=== PATIENT | female | born 1980 | race African-American/Black ===

== ENCOUNTER 2017-05-26 06:47 | Inpatient (IN) | payer BC, OTHER ==
[~2017-05-26] VITALS: Ht 154.9 cm; Wt 81.6 kg
[2017-05-26] MEDS ORDERED: LEVE1000 PO ×2 (07:03)
[2017-05-26] MEDS ORDERED: KETOROLAC TROMETHAMINE 30 MG INJ IVP ONE (07:15)
[2017-05-26] MEDS ORDERED: diphenhydrAMINE 50 MG/1 ML VIAL IV ONE (07:15)
[2017-05-26] MEDS ORDERED: FAMOTIDINE. 20 MG/2 ML VIAL IV ONE ×2 (07:15→07:34)
[2017-05-26] MEDS ORDERED: diphenhydrAMINE 50 MG/1 ML VIAL ONE (07:33)
[2017-05-26] MEDS ORDERED: KETOROLAC TROMETHAMINE 30 MG INJ ONE (07:33)
[2017-05-26] MEDS ORDERED: CEFTRIAXONE 1 G in IV DEXTROSE 5% 50 ML IV ONE (08:30)
--- NOTE | 2017-05-26 08:43 | NUR ---
Pt to CT, NAD noted at this time.
[2017-05-26] MEDS ORDERED: CEFTRIAXONE 1 G VIAL ONE (08:47)
[2017-05-26] MEDS ORDERED: MORPHINE SULFATE 4 MG/1 ML DISP.SYRIN IV ONE (09:30)
[2017-05-26] MEDS ORDERED: VANCOMYCIN IV 1,000 MG in IV DEXTROSE 5% 250 ML IV ONE (09:30)
[2017-05-26] MEDS ORDERED: ONDANSETRON 4 MG/2 ML VIAL IV ONE (09:30)
[2017-05-26] MEDS ORDERED: VANCOMYCIN IV 200 ML ONE (09:40)
[2017-05-26] MEDS ORDERED: ONDANSETRON 4 MG/2 ML VIAL ONE (09:40)
[2017-05-26] MEDS ORDERED: MORPHINE SULFATE 10 MG/1 ML DISP.SYRIN ONE (09:41)
[2017-05-26 09:49] LABS: CREATININE 0.7 mg/dL (0.6-1.3); POTASSIUM 3.6 mmol/L (3.5-5.1)
[2017-05-26 09:51] LABS: BASOPHILS # (AUTO) 0.1 K/uL (0.0-8.0); BASOPHILS % (AUTO) 2.3 % (0.0-2.0); EOSINOPHILS # (AUTO) 0.1 K/uL (0.0-0.7); EOSINOPHILS % (AUTO) 2.3 % (0.0-7.0); HEMATOCRIT 35.9 % (37-47); HEMOGLOBIN 12.1 G/DL (12.0-16.0); LYMPHOCYTES % (AUTO) 37.1 % (20.5-51.5); MEAN CORPUSCULAR HEMOGLOBIN 29.3 UUG (27.0-31.0); MEAN CORPUSCULAR HGB CONC 34 g/dL (32.0-37.0); MEAN CORPUSCULAR VOLUME 87.2 FL (81.0-99.0); MONOCYTES # (AUTO) 0.5 K/UL (0.1-1.30); MONOCYTES % (AUTO) 8.4 % (0.0-11.0); NEUTROPHILS # (AUTO) 2.7 K/UL (1.8-8.9); NEUTROPHILS % (AUTO) 49.9 % (38.5-71.5); PLATELET COUNT (AUTO) 239 K/UL (150-450); RED BLOOD CELL COUNT(AUTO) 4.11 MIL/UL (4.2-5.4); WHITE BLOOD COUNT (AUTO) 5.4 K/UL (4.0-11.2)
[2017-05-26 09:55] LABS: BILIRUBIN,TOTAL 0.1 mg/dL (0.2-1.0); TOTAL PROTEIN, SERUM 6.6 g/dL (6.4-8.2)
[2017-05-26] MEDS ORDERED: MORPHINE SULFATE 2 MG/1 ML DISP.SYRIN IV PRN (10:30)
[2017-05-26] MEDS ORDERED: hydrALAZINE HCL 25 MG TABLET PO PRN (10:30)
[2017-05-26] MEDS ORDERED: ACETAMINOPHEN 325 MG TABLET PO PRN (10:30)
[2017-05-26 10:47] VITALS: BP 132/83
--- NOTE | 2017-05-26 11:05 | NUR ---
Received client via wheelchair from the ER. Diagnosis of right eye cellulitis. V/S stable. No apparent signs and symptoms SOB. Client states right eye discomfort and pain rating 10/10 on pain scale. Dilaudid 0.5mg given
--- NOTE | 2017-05-26 11:41 | NUR ---
CLINICAL PHARMACY NOTE: VANCOMYCIN PHARMACY TO DOSE Subjective: To start vancomycin in this 36 y/o female for indication of cellulitis Objective: weight 81kg height 155cm BMI 34 BUN 10 Scr 0.7 Wbc 5.4 temp 98.4 1gm in ER 05/26 @ ~10am Assessment/Plan As renal function appears stable, will start regimen of 1000gm q11hr for estimated trough of 16. Second dose due tonight at 2100. Will order trough before 4th scheduled dose (not ordered yet). Will follow renal function and dose per level if were to appear unstable. Will monitor
[2017-05-26] MEDS ORDERED: HYDROMORPHONE 2 MG/1 ML DISP.SYRIN IV PRN (12:00)
[2017-05-26] MEDS: NICOTINE 21 MG/24HR PATCH TD SCH (14:25)
[2017-05-26] MEDS: HYDROMORPHONE 2 MG/1 ML DISP.SYRIN IV PRN ×3 (15:22→22:49)
[2017-05-26 15:26] VITALS: BP 110/48
[2017-05-26] MEDS: ONDANSETRON 4 MG/2 ML VIAL IV PRN (15:38)
[2017-05-26 17:41] LABS: *BILIRUBIN,URIN NEGATIVE (NEGATIVE); *BLOOD, URINE NEGATIVE (NEGATIVE); *CLARITY,URINE SLIGHTLY CLOUDY (CLEAR); *COLOR,URINE DARK YELLOW (YELLOW); *KETONES,URINE NEGATIVE (NEGATIVE); *PROTEIN,URINE 1+ (NEGATIVE); *UROBILINOGEN,URINE 0.2 E.U./dl (NORMAL); LEUKOCYTE ESTERASE ,URINE NEGATIVE (NEGATIVE); NITRITE, URINE NEGATIVE (NEGATIVE); UGLUCOSE NEGATIVE (NEGATIVE)
[2017-05-26] MEDS: KETOROLAC TROMETHAMINE 15 MG INJ IVP PRN (18:06)
--- NOTE | 2017-05-26 19:22 | NUR ---
Pt in room alert and awake in no distress. No increased swelling to affected right eye. Pt requesting pain medication for comfort measures. Pt to continue IV abx therapy. Call light placed within reach. Continue to monitor.
--- NOTE | 2017-05-26 19:24 | NUR ---
RESIDENT PAIN IS STILL NOT CONTROL. PLASTIC TILE SETTER IS AWARE ABOUT CLIENTS PAIN. CLIENT AWAKE, ALERT AND ORIENTED TIMES 4
[2017-05-26 19:45] VITALS: BP 133/83
[2017-05-26 19:52] LABS: BACTERIA,URINE MODERATE /HPF (NONE SEEN); MUCUS,URINE MANY /LPF (0-FEW); RBC,URINE 0-3 /HPF (0-3); SQUAMOUS EPITHELIAL CELL,UR MANY /HPF (NONE SEEN); WBC,URINE 0-3 /HPF (0-3)
[2017-05-26] MEDS: VANCOMYCIN IV 1 G in PREMIXED 0 EACH IV SCH (20:03)
[2017-05-26] MEDS: LEVETIRACETAM 500 MG TABLET PO SCH (20:03)
[2017-05-27] MEDS: KETOROLAC TROMETHAMINE 15 MG INJ IVP PRN (00:19)
--- NOTE | 2017-05-27 01:00 | NUR ---
Pt continues to receive PRN pain medications d/t right eye. Pt still able to see left eye without difficulty. No reaction to current ABX IV therapy. Continue to monitor. Call light within reach.
[2017-05-27] MEDS: HYDROMORPHONE 2 MG/1 ML DISP.SYRIN IV PRN ×7 (01:59→21:26)
--- NOTE | 2017-05-27 05:00 | NUR ---
Pt in room asleep and slert. States her pain is still the same and Dilaudid medication has had a less effect. No s/s of reaction to Vancomycin IV abx therapy. No increased swelling or to right eye. Continue to monitor.
[2017-05-27 06:25] VITALS: BP 130/78
[2017-05-27 06:56] LABS: BASOPHILS % (AUTO) 0.2 % (0.0-2.0); EOSINOPHILS # (AUTO) 0.1 K/uL (0.0-0.7); EOSINOPHILS % (AUTO) 2.4 % (0.0-7.0); HEMATOCRIT 35.8 % (37-47); HEMOGLOBIN 11.9 G/DL (12.0-16.0); LYMPHOCYTES # (AUTO) 2.3 K/UL (0.8-4.8); LYMPHOCYTES % (AUTO) 47.7 % (20.5-51.5); MEAN CORPUSCULAR HEMOGLOBIN 29.2 UUG (27.0-31.0); MEAN CORPUSCULAR HGB CONC 33 g/dL (32.0-37.0); MEAN CORPUSCULAR VOLUME 88.1 FL (81.0-99.0); MONOCYTES # (AUTO) 0.4 K/UL (0.1-1.30); MONOCYTES % (AUTO) 9.1 % (0.0-11.0); NEUTROPHILS # (AUTO) 1.9 K/UL (1.8-8.9); NEUTROPHILS % (AUTO) 40.6 % (38.5-71.5); PLATELET COUNT (AUTO) 223 K/UL (150-450); RED BLOOD CELL COUNT(AUTO) 4.06 MIL/UL (4.2-5.4); WHITE BLOOD COUNT (AUTO) 4.7 K/UL (4.0-11.2)
[2017-05-27 07:22] LABS: THYROID STIMULATING HORMONE 2.971 mIU/mL (0.358-3.740)
[2017-05-27 07:32] LABS: BILIRUBIN,TOTAL 0.1 mg/dL (0.2-1.0); CREATININE 0.8 mg/dL (0.6-1.3); MAGNESIUM 1.7 mg/dL (1.8-2.4); PHOSPHOROUS 4.1 mg/dL (2.5-4.9); POTASSIUM 3.5 mmol/L (3.5-5.1); TOTAL PROTEIN, SERUM 6.3 g/dL (6.4-8.2)
[2017-05-27] MEDS: NICOTINE 21 MG/24HR PATCH TD SCH (08:07)
[2017-05-27] MEDS: FAMOTIDINE 20 MG TABLET PO SCH (08:07)
[2017-05-27] MEDS: LEVETIRACETAM 500 MG TABLET PO SCH ×2 (08:07→21:21)
[2017-05-27] MEDS: VANCOMYCIN IV 1 G in PREMIXED 0 EACH IV SCH ×2 (09:14→20:18)
[2017-05-27] MEDS ORDERED: MAGNESIUM SULFATE/D5W 100 ML IV SCH (10:15)
[2017-05-27 11:04] LABS: BAND % (MANUAL) 3 % (0-10); EOSINOPHILS % (MANUAL) 1 % (0-8); LYMPHOCYTES % (MANUAL) 43 % (20-40); MONOCYTES % (MANUAL) 7 % (2-10); NEUTROPHILS % (MANUAL) 46 % (42-75)
[2017-05-27 11:27] VITALS: BP 147/83
[2017-05-27] MEDS: CEFTRIAXONE 1 G in IV DEXTROSE 5% 50 ML IV SCH (11:30)
[2017-05-27] MEDS: ONDANSETRON 4 MG/2 ML VIAL IV PRN ×2 (12:45→17:58)
--- NOTE | 2017-05-27 15:08 | NUR ---
CLINICAL PHARMACY NOTE: VANCOMYCIN PHARMACY TO DOSE Subjective: To continue vancomycin in this 36 y/o female for indication of cellulitis Objective: weight 81kg height 155cm BMI 34 BUN 13 Scr 0.8 Wbc 4.7 temp 98.2 Assessment/Plan As renal function appears stable, will continue regimen of 1000gm q11hr for estimated trough of 16. Third dose was given today at 0914.. Will order trough before 4th scheduled dose (ordered for tonight at 1830). Will notify nurse to hold the dose for level over 20. Will follow renal function and dose per level if were to appear unstable. Will monitor daily.
[2017-05-27 15:34] VITALS: BP 142/92
--- NOTE | 2017-05-27 18:28 | NUR ---
Pt is in pain 10/10, pt given Diluaded and it is effective. Pt c/o Nausea with the Dilaudid, pt given Zofran, it is effective. Awake in bed with no signs of respiratory distress, AOx4, calm, cooperative, call light within reach.
--- NOTE | 2017-05-27 19:40 | NUR ---
RECEIVED PATIENT IN BED ALERT ORIENTED, NO SOB NO CHEST PAIN NOTED, CONT ON PAIN MANAGEMENT ON R EYE CELLULITIS, CALL LIGHT WITHIN REACH.
[2017-05-27] MEDS: LACTOBACILLUS RHAMNOSUS GG 1 EACH CAPSULE PO SCH (20:18)
[2017-05-27 20:27] VITALS: BP 146/88
[2017-05-27] MEDS ORDERED: LEVETIRACETAM 250 MG TABLET ONE (21:16)
[2017-05-28] MEDS: ONDANSETRON 4 MG/2 ML VIAL IV PRN ×4 (00:13→17:54)
[2017-05-28] MEDS: HYDROMORPHONE 2 MG/1 ML DISP.SYRIN IV PRN ×8 (00:33→22:00)
[2017-05-28] MEDS: VANCOMYCIN IV 1 G in PREMIXED 0 EACH IV SCH ×3 (05:33→23:15)
[2017-05-28 05:57] VITALS: BP 121/54
[2017-05-28 07:11] LABS: EOSINOPHILS # (AUTO) 0.1 K/uL (0.0-0.7); EOSINOPHILS % (AUTO) 1.8 % (0.0-7.0); HEMATOCRIT 35.9 % (37-47); HEMOGLOBIN 11.8 G/DL (12.0-16.0); LYMPHOCYTES # (AUTO) 1.8 K/UL (0.8-4.8); LYMPHOCYTES % (AUTO) 41.2 % (20.5-51.5); MEAN CORPUSCULAR HEMOGLOBIN 28.7 UUG (27.0-31.0); MEAN CORPUSCULAR HGB CONC 33 g/dL (32.0-37.0); MEAN CORPUSCULAR VOLUME 87.3 FL (81.0-99.0); MONOCYTES # (AUTO) 0.4 K/UL (0.1-1.30); MONOCYTES % (AUTO) 8.1 % (0.0-11.0); NEUTROPHILS # (AUTO) 2.2 K/UL (1.8-8.9); NEUTROPHILS % (AUTO) 47.9 % (38.5-71.5); PLATELET COUNT (AUTO) 235 K/UL (150-450); RED BLOOD CELL COUNT(AUTO) 4.11 MIL/UL (4.2-5.4); WHITE BLOOD COUNT (AUTO) 4.5 K/UL (4.0-11.2)
[2017-05-28 07:35] LABS: BILIRUBIN,TOTAL 0.2 mg/dL (0.2-1.0); CREATININE 0.8 mg/dL (0.6-1.3); PHOSPHOROUS 3.5 mg/dL (2.5-4.9); POTASSIUM 3.5 mmol/L (3.5-5.1); TOTAL PROTEIN, SERUM 6.5 g/dL (6.4-8.2)
[2017-05-28] MEDS: FAMOTIDINE 20 MG TABLET PO SCH (08:24)
[2017-05-28] MEDS: LACTOBACILLUS RHAMNOSUS GG 1 EACH CAPSULE PO SCH ×2 (08:24→20:50)
[2017-05-28] MEDS: LEVETIRACETAM 500 MG TABLET PO SCH ×2 (08:25→20:50)
[2017-05-28] MEDS: CEFTRIAXONE 1 G in IV DEXTROSE 5% 50 ML IV SCH (08:25)
[2017-05-28] MEDS: NICOTINE 21 MG/24HR PATCH TD SCH (08:25)
[2017-05-28 11:54] VITALS: BP 130/74
--- NOTE | 2017-05-28 15:21 | NUR ---
CLINICAL PHARMACY NOTE: VANCOMYCIN PHARMACY TO DOSE Subjective: To continue vancomycin in this 36 y/o female for indication of cellulitis Objective: weight 81kg height 155cm BMI 34 BUN 7 Scr 0.8 Wbc 4.5 temp 98.1 Trough: 12.7 04/26 @ 1830 Assessment/Plan Based on trough last night, will change 1000gm q11hr to 1gm q9hr for estimated trough of 16.6. 2nd dose today at 1500. Ordered trough due tomorrow at 0830. Will check trough and adjust as needed. Will follow
[2017-05-28 15:35] VITALS: BP 132/84
--- NOTE | 2017-05-28 19:45 | NUR ---
PT RECEIVED IN BED, AWAKE. A/OX4. ABLE TO MAKE NEEDS KNOWN. V/S STABLE. IN NO ACUTE DISTRESS. PT C/O EYE PAIN 04/11. WILL ADMIN PAIN MEDICATION ORDERED. IV INTACT AND PATENT. ON RA TOLERATING WELL. SEIZURE PRECAUTIONS IN PLACE. SAFETY MEASURES IMPLEMENTED. CALL LIGHT WITHIN REACH.
[2017-05-28 20:16] VITALS: BP 135/68
[2017-05-28] MEDS: ATORVASTATIN 20 MG TABLET PO SCH (20:50)
[2017-05-29] MEDS: ONDANSETRON 4 MG/2 ML VIAL IV PRN ×3 (00:59→13:04)
[2017-05-29] MEDS: HYDROMORPHONE 2 MG/1 ML DISP.SYRIN IV PRN ×6 (01:00→21:50)
[2017-05-29 05:06] VITALS: BP 132/58
--- NOTE | 2017-05-29 06:35 | NUR ---
END OF SHIFT NOTES. PT SLEPT INTERMITTENTLY THROUGHOUT SHIFT. IN STABLE CONDITION. IV TKO 3CC/HR. PAIN MANAGED THROUGHOUT SHIFT. ALL NEEDS ATTENDED. SAFETY MAINTAINED. CALL LIGHT WITHIN REACH.
--- NOTE | 2017-05-29 07:30 | NUR ---
RECEIVED PATIENT IN BED ALERT ORIENTED, NO SOB NO CHEST PAIN NOTED, CONT ON PAIN MANAGEMENT ON R EYE CELLULITIS, CALL LIGHT WITHIN REACH.
[2017-05-29] MEDS: NICOTINE 21 MG/24HR PATCH TD SCH (08:02)
[2017-05-29] MEDS: LEVETIRACETAM 500 MG TABLET PO SCH ×2 (08:02→21:06)
[2017-05-29] MEDS: FAMOTIDINE 20 MG TABLET PO SCH (08:03)
[2017-05-29] MEDS: LACTOBACILLUS RHAMNOSUS GG 1 EACH CAPSULE PO SCH ×2 (08:47→21:05)
[2017-05-29] MEDS: VANCOMYCIN IV 1 G in PREMIXED 0 EACH IV SCH ×2 (10:03→20:58)
[2017-05-29 11:20] VITALS: BP 141/68
[2017-05-29 15:05] VITALS: BP 131/74
--- NOTE | 2017-05-29 16:00 | NUR ---
CLINICAL PHARMACY NOTE: VANCOMYCIN PHARMACY TO DOSE Subjective: To continue vancomycin in this 36 y/o female for indication of cellulitis Objective: weight 81kg height 155cm BMI 34 BUN 7(05/28) Scr 0.8(05/28) Wbc 4.5(05/28) temp 98.4 Trough today at 0830 was 19.9 Assessment/Plan Based on trough today, will change 1000gm q9hr to 1gm q10hr for estimated trough of 16.7, 2nd dose today at 1000. Ordered trough due tomorrow at 0530. Will check trough and adjust as needed. Will follow
--- NOTE | 2017-05-29 17:57 | NUR ---
PT IS SEEN BY DR LA
--- NOTE | 2017-05-29 19:30 | NUR ---
Pt in room alert awake in no acute distress. No increased swelling noted to right eye. Pt c/o pain to side and will be given PRN pain medication. Pt also requesting Zofran when needed. Continues to received IV ABX therapy. Continue to monitor at this time.
[2017-05-29 20:00] VITALS: BP 142/59
[2017-05-29] MEDS: ATORVASTATIN 20 MG TABLET PO SCH (21:05)
--- NOTE | 2017-05-30 01:00 | NUR ---
Pt alert awake in room and stated she wanted to go outside for "fresh air". No s/s of reaction r/t to IV Vancomycin therapy. No increased s/s of infection noted to right eye. Continue to monitor. Pt stated she would like her pain medication after 0100 soon.
[2017-05-30] MEDS: HYDROMORPHONE 2 MG/1 ML DISP.SYRIN IV PRN ×5 (01:29→23:52)
[2017-05-30] MEDS: ONDANSETRON 4 MG/2 ML VIAL IV PRN ×2 (01:35→13:04)
[2017-05-30 04:00] VITALS: BP 169/85
--- NOTE | 2017-05-30 04:45 | NUR ---
New orders per Dr. Arellano to transfer pt to Telemetry. Also to include Lorazepam 1mg IVP Q15min PRN seizures. Noted and carried out.
[2017-05-30] MEDS: LORAZEPAM 2 MG/1 ML VIAL IV PRN (04:57)
--- NOTE | 2017-05-30 05:00 | NUR ---
Pt in room alert awake in no further episodes of seizures. Pt Received Lorazepam 1mg per MD. Continue to monitor.
[2017-05-30] MEDS ORDERED: LORAZEPAM 2 MG/1 ML VIAL ONE (05:11)
[2017-05-30] MEDS: VANCOMYCIN IV 1 G in PREMIXED 0 EACH IV SCH ×2 (06:00→08:55)
--- NOTE | 2017-05-30 08:40 | NUR ---
medicated for right eye pain Addendum: 05/30/17 at 0950 by THOMAS BOYCE RN Amended: Elias added. Addendum: 05/30/17 at 0953 by THOMAS BOYCE RN Amended: Elias lopez.
[2017-05-30] MEDS: LACTOBACILLUS RHAMNOSUS GG 1 EACH CAPSULE PO SCH ×2 (08:44→20:58)
[2017-05-30] MEDS: FAMOTIDINE 20 MG TABLET PO SCH (08:44)
[2017-05-30] MEDS: LEVETIRACETAM 500 MG TABLET PO SCH ×2 (08:44→20:58)
[2017-05-30] MEDS: NICOTINE 21 MG/24HR PATCH TD SCH (08:45)
--- NOTE | 2017-05-30 08:55 | NUR ---
per pharmacy vancomycin needed to be hung based from last vanco level. Vancomycin infused at 0855 Addendum: 05/30/17 at 0953 by THOMAS BOYCE RN Amended: Links added.
[2017-05-30 10:11] VITALS: BP 102/58
--- NOTE | 2017-05-30 13:55 | NUR ---
CLINICAL PHARMACY NOTE: VANCOMYCIN PHARMACY TO DOSE Subjective: To continue vancomycin in this 36 y/o female for indication of cellulitis Objective: weight 81kg height 155cm BMI 34 BUN 7(05/28) Scr 0.8(05/28) Wbc 4.5(05/28) temp 97.8 Vanco trough level: 11.8 Assessment/Plan Based on trough today, will change 1000gm q10hr to 1250mg IV q11hr for estimated trough of 15.8 mcg/ml. 1st dose is due today at 1100. Plan to draw vanco trough level before 4th dose (level not yet ordered). Will monitor renal function & adjust the dose if needed. Will follow
[2017-05-30 15:46] VITALS: BP 125/78
[2017-05-30] MEDS ORDERED: MAGNESIUM HYDROXIDE 30 ML LIQUID UDC PO ONE (16:30)
[2017-05-30 16:35] LABS: BASOPHILS # (AUTO) 0.1 K/uL (0.0-8.0); BASOPHILS % (AUTO) 2.8 % (0.0-2.0); EOSINOPHILS % (AUTO) 0.8 % (0.0-7.0); HEMOGLOBIN 12.8 G/DL (12.0-16.0); LYMPHOCYTES # (AUTO) 1.5 K/UL (0.8-4.8); LYMPHOCYTES % (AUTO) 27.6 % (20.5-51.5); MEAN CORPUSCULAR HEMOGLOBIN 28.4 UUG (27.0-31.0); MEAN CORPUSCULAR HGB CONC 33 g/dL (32.0-37.0); MEAN CORPUSCULAR VOLUME 86.9 FL (81.0-99.0); MONOCYTES # (AUTO) 0.6 K/UL (0.1-1.30); MONOCYTES % (AUTO) 11.6 % (0.0-11.0); NEUTROPHILS # (AUTO) 3.1 K/UL (1.8-8.9); NEUTROPHILS % (AUTO) 57.2 % (38.5-71.5); PLATELET COUNT (AUTO) 222 K/UL (150-450); RED BLOOD CELL COUNT(AUTO) 4.49 MIL/UL (4.2-5.4); WHITE BLOOD COUNT (AUTO) 5.3 K/UL (4.0-11.2)
[2017-05-30 16:36] LABS: CREATININE 0.7 mg/dL (0.6-1.3); POTASSIUM 4.1 mmol/L (3.5-5.1)
[2017-05-30] MEDS: DOCUSATE SODIUM 100 MG CAPSULE PO SCH (16:51)
[2017-05-30] MEDS: VANCOMYCIN IV 1,250 MG in IV DEXTROSE 5% 500 ML IV SCH (18:19)
--- NOTE | 2017-05-30 18:50 | NUR ---
IV left armpit infiltrated, called for mid line insertion.1800 dose vancomycin held/ still hanging Addendum: 05/30/17 at 1850 by THOMAS BOYCE RN Amended: Links added.
--- NOTE | 2017-05-30 19:14 | NUR ---
SHIFT REPORT GIVEN TO Mikhail Addendum: 05/30/17 at 1915 by THOMAS BOYCE RN Amended: Links added.
--- NOTE | 2017-05-30 19:20 | NUR ---
Awake during initial rounds, presented complaint that she did not have BM since Monday. Dr. White made aware, awaiting for a new order.
[2017-05-30 20:00] VITALS: BP 147/85
[2017-05-30] MEDS: ATORVASTATIN 20 MG TABLET PO SCH (20:58)
[2017-05-30] MEDS ORDERED: MAGNESIUM HYDROXIDE 30 ML LIQUID UDC PO PRN (21:00)
--- NOTE | 2017-05-30 21:35 | NUR ---
MOM was given as ordered and needed with prune juice . Will monitor.
--- NOTE | 2017-05-30 23:14 | NUR ---
Had large BM . MOM and prune juice effective.
--- NOTE | 2017-05-30 23:50 | NUR ---
IV inserted on RFA G # 20 X 2 by ICU nurse. Patient tolerated procedure well.
--- NOTE | 2017-05-31 00:02 | NUR ---
Medicated with Dilaudid as ordered and needed for right eye pain. Will monitor.
[2017-05-31] MEDS: LORAZEPAM 2 MG/1 ML VIAL IV PRN ×2 (01:37→23:43)
--- NOTE | 2017-05-31 01:38 | NUR ---
No pain complaint as this time, but patient still up & anxious, requesting for her Ativan. Vital signs WNL, no SOB noted. Ativan 1mg IVP administered.
[2017-05-31] MEDS: HYDROMORPHONE 2 MG/1 ML DISP.SYRIN IV PRN ×5 (03:43→21:09)
[2017-05-31] MEDS: VANCOMYCIN IV 1,250 MG in IV DEXTROSE 5% 500 ML IV SCH ×2 (04:42→16:17)
[2017-05-31] MEDS: ONDANSETRON 4 MG/2 ML VIAL IV PRN ×4 (05:30→23:43)
[2017-05-31 06:00] VITALS: BP 126/75
[2017-05-31 06:48] LABS: CREATININE 0.7 mg/dL (0.6-1.3); POTASSIUM 3.8 mmol/L (3.5-5.1)
[2017-05-31 07:28] LABS: BASOPHILS % (AUTO) 0.4 % (0.0-2.0); EOSINOPHILS # (AUTO) 0.1 K/uL (0.0-0.7); EOSINOPHILS % (AUTO) 1.5 % (0.0-7.0); HEMATOCRIT 38.8 % (31.2-41.9); HEMOGLOBIN 12.9 g/dL (10.9-14.3); LYMPHOCYTES # (AUTO) 1.8 K/uL (20.0-40.0); LYMPHOCYTES % (AUTO) 37.1 % (20.5-51.5); MEAN CORPUSCULAR HEMOGLOBIN 29.3 uug (24.7-32.8); MEAN CORPUSCULAR HGB CONC 33 g/dL (32.3-35.6); MONOCYTES # (AUTO) 0.5 K/uL (2.0-10.0); MONOCYTES % (AUTO) 10.4 % (0.0-11.0); NEUTROPHILS # (AUTO) 2.5 K/uL (1.8-8.9); NEUTROPHILS % (AUTO) 50.6 % (38.5-71.5); PLATELET COUNT (AUTO) 229 K/uL (179-408); WHITE BLOOD COUNT (AUTO) 4.9 K/uL (3.8-11.8)
[2017-05-31] MEDS: NICOTINE 21 MG/24HR PATCH TD SCH (08:30)
[2017-05-31] MEDS: FAMOTIDINE 20 MG TABLET PO SCH (08:32)
[2017-05-31] MEDS: DOCUSATE SODIUM 100 MG CAPSULE PO SCH ×2 (08:32→21:08)
[2017-05-31] MEDS: LACTOBACILLUS RHAMNOSUS GG 1 EACH CAPSULE PO SCH ×2 (08:32→21:08)
[2017-05-31] MEDS: LEVETIRACETAM 500 MG TABLET PO SCH (08:32)
--- NOTE | 2017-05-31 09:31 | NUR ---
PT REQUESTING PAIN MEDICATION, NO MEDICATION IN PIXIS. PHARMACY CALLED AND MADE AWARE. NOTIFIED PATIENT OF DELAY
[2017-05-31] MEDS ORDERED: DEXTROSE 5% IV STA (10:20)
[2017-05-31] MEDS ORDERED: VALPROATE SODIUM IV STA (10:20)
[2017-05-31 10:58] VITALS: BP 125/65
[2017-05-31 15:00] VITALS: BP 154/82
--- NOTE | 2017-05-31 15:40 | NUR ---
CLINICAL PHARMACY NOTE: VANCOMYCIN PHARMACY TO DOSE Subjective: To continue vancomycin in this 36 y/o female for indication of cellulitis Objective: weight 81kg height 155cm BMI 34 BUN 3 Scr 0.7 Wbc 4.9 temp 97.8 Assessment/Plan Since renal function is stable, will continue 1250mg IV q11hr for estimated trough of 15.8 mcg/ml. Third dose is due today at 1600. Plan to draw vanco trough level before 4th dose (ordered for tomorrow at 0230). Will monitor renal function & adjust the dose if needed. Will follow
[2017-05-31 20:00] VITALS: BP 148/84
[2017-05-31] MEDS ORDERED: LEVETIRACETAM 500 MG TABLET PO SCH (21:00)
[2017-05-31] MEDS: ATORVASTATIN 20 MG TABLET PO SCH (21:08)
[2017-05-31] MEDS: DIVALPROEX 500 MG TABLET.DR PO SCH (21:08)
[2017-06-01] MEDS: HYDROMORPHONE 2 MG/1 ML DISP.SYRIN IV PRN ×5 (00:57→15:28)
[2017-06-01] MEDS: VANCOMYCIN IV 1,250 MG in IV DEXTROSE 5% 500 ML IV SCH ×2 (03:27→14:40)
[2017-06-01 06:37] VITALS: BP 129/95
--- NOTE | 2017-06-01 07:15 | NUR ---
Vanco trough level 18.6. Vanco IVPB administered, patient tolerated. Medicated for pain PRN. Assisted w/ needs, kept comfortable.
[2017-06-01] MEDS: DIVALPROEX 500 MG TABLET.DR PO SCH (08:38)
[2017-06-01] MEDS: FAMOTIDINE 20 MG TABLET PO SCH (08:38)
[2017-06-01] MEDS: DOCUSATE SODIUM 100 MG CAPSULE PO SCH (08:38)
[2017-06-01] MEDS: LACTOBACILLUS RHAMNOSUS GG 1 EACH CAPSULE PO SCH (08:40)
[2017-06-01] MEDS: NICOTINE 21 MG/24HR PATCH TD SCH (08:40)
[2017-06-01] MEDS: LEVETIRACETAM 500 MG TABLET PO SCH (09:16)
[2017-06-01] MEDS: ONDANSETRON 4 MG/2 ML VIAL IV PRN ×2 (09:20→15:30)
[2017-06-01 11:07] VITALS: BP 108/60
[2017-06-01] MEDS ORDERED: ATOR20TA PO (13:30)
[2017-06-01] MEDS ORDERED: RXVAN XX (13:30)
[2017-06-01] MEDS ORDERED: LEVE500T9 PO ×2 (13:30)
[2017-06-01] MEDS ORDERED: DIVA500T2 PO (13:30)
[2017-06-01] MEDS ORDERED: LACT1CAP57 PO (13:30)
--- NOTE | 2017-06-01 14:17 | NUR ---
CLINICAL PHARMACY NOTE: VANCOMYCIN PHARMACY TO DOSE Subjective: To continue vancomycin in this 36 y/o female for indication of cellulitis Objective: weight 81kg height 155cm BMI 34 BUN 3 (05/31) Scr 0.7 Wbc 4.9 temp 97.8 trough: 18.6 today early am at 0230 Assessment/Plan Since renal function is stable, and trough within range, will continue 1250mg IV q11hr for now. Will monitor renal function & adjust the dose if needed. Will follow
[2017-06-01] MEDS ORDERED: DIVALPROEX 500 MG TABLET.DR PO SCH (17:00)
--- NOTE | 2017-06-01 17:45 | NUR ---
discharge noted. protocol followed, midline intact and patent, pt to continue abx at home. education provided, pt verbalized understanding. all belongings accounted for and sent with pt. pt taken down in wheelchair and left in private car with
== END 2017-06-01 17:45 | disposition home or self-care (01) | DRG 603 ==
LOC: ER 06:47 → MED 10:31 → TELE 05-30 04:54 → MED 05-30 13:26
PROVIDERS: ADMIT Internal Medicine; ATTEND Internal Medicine
PROC: 05H633Z Insertion of Infusion Device into Left Subclavian Vein, Percutaneous Approach (ICD-10-PCS; principal; 2017-05-31)
DX: L03.213 Periorbital cellulitis (principal); E44.0 Moderate protein-calorie malnutrition; E83.42 Hypomagnesemia; E66.9 Obesity, unspecified; E78.5 Hyperlipidemia, unspecified; F17.210 Nicotine dependence, cigarettes, uncomplicated; K59.00 Constipation, unspecified; Z83.3 Family history of diabetes mellitus; G40.909 Epilepsy, unspecified, not intractable, without status epilepticus; D64.9 Anemia, unspecified; J34.1 Cyst and mucocele of nose and nasal sinus; R03.0 Elevated blood-pressure reading, without diagnosis of hypertension; Z68.34 Body mass index [BMI] 34.0-34.9, adult; B95.7 Other staphylococcus as the cause of diseases classified elsewhere
CPT/HCPCS: 36415; 70480; 71010; 80164; 83735; 84100; 84443; 84703; 85025; 85610; 87040; 87070; 87077; 87086; A4663; J0696; J1170; J1200; J1885; J2060; J2270; J2405; J3370; J3475; J3490; J7040; J7050; J7060

== ENCOUNTER 2017-07-10 22:33 | Emergency (ER) | payer BC, OTHER ==
[~2017-07-10] VITALS: Ht 154.9 cm; Wt 81.6 kg
[~2017-07-10 22:33] MED LIST: ATOR20TA PO; DIVA500T2 PO; LACT1CAP57 PO; LEVE500T9 PO; RXVAN XX
[2017-07-10] MEDS ORDERED: DIVALPROEX 500 MG TABLET.DR PO ONE ×2 (22:45→23:03)
[2017-07-10] MEDS ORDERED: LEVETIRACETAM 250 MG TABLET PO ONE (22:45)
[2017-07-10 22:50] VITALS: BP 149/91
[2017-07-10] MEDS ORDERED: LEVETIRACETAM 250 MG TABLET ONE (23:03)
== END 2017-07-10 22:51 | disposition home or self-care (01) ==
LOC: ER 22:33
DX: G40.909 Epilepsy, unspecified, not intractable, without status epilepticus (principal); E78.5 Hyperlipidemia, unspecified; F17.200 Nicotine dependence, unspecified, uncomplicated; Z88.5 Allergy status to narcotic agent
CPT/HCPCS: A4663

== ENCOUNTER 2017-07-14 18:37 | Emergency (ER) | payer BC, OTHER ==
[~2017-07-14] VITALS: Ht 154.9 cm; Wt 81.6 kg
[2017-07-14] MEDS ORDERED: ACETAMINOPHEN ES 500 MG TABLET PO ONE (19:15)
[2017-07-14] MEDS ORDERED: AMOXICILLIN-CLAVUL 875-125MG TABLET PO ONE (19:15)
[2017-07-14] MEDS ORDERED: IBUPROFEN 600 MG TABLET PO ONE (19:15)
[2017-07-14] MEDS ORDERED: SULFAMETH/TRIMETH 800/160 MG TABLET PO ONE (19:15)
--- NOTE | 2017-07-14 19:49 | NUR ---
Patient discharged to home in stable conditon. Written and verbal after care instructions given. Patient verbalizes understanding of instructions.
[2017-07-14] MEDS ORDERED: IBUPROFEN 600 MG TABLET ONE (19:51)
[2017-07-14] MEDS ORDERED: ACETAMINOPHEN ES 500 MG TABLET ONE (19:51)
[2017-07-14] MEDS ORDERED: SULFAMETH/TRIMETH 800/160 MG TABLET ONE (19:51)
[2017-07-14] MEDS ORDERED: AMOXICILLIN-CLAVUL 875-125MG TABLET ONE (19:51)
[2017-07-19] MEDS ORDERED: SULF1TAB48 PO (12:29)
[2017-07-19] MEDS ORDERED: MORP15TA PO (12:29)
[2017-07-19] MEDS ORDERED: FLUC150T PO (12:34)
== END 2017-07-14 19:50 | disposition home or self-care (01) ==
LOC: ER 18:37
DX: L03.213 Periorbital cellulitis (principal); F17.200 Nicotine dependence, unspecified, uncomplicated
CPT/HCPCS: 99284; A4663

== ENCOUNTER 2017-07-15 10:20 | Inpatient (IN) | payer BC, OTHER ==
[~2017-07-15] VITALS: Ht 154.9 cm; Wt 90.7 kg
[2017-07-15] MEDS ORDERED: VANCOMYCIN IV 1,000 MG in IV DEXTROSE 5% 250 ML IV ONE (10:30)
[2017-07-15] MEDS ORDERED: IV NORMAL SALINE 1000 ML BAG IV ONE (10:30)
--- NOTE | 2017-07-15 10:37 | NUR ---
JIMI Kumar is atempting IV line insertion at this time.
[2017-07-15] MEDS ORDERED: VANCOMYCIN IV 200 ML ONE (10:52)
[2017-07-15] MEDS ORDERED: HYDROMORPHONE 1 MG/1 ML DISP.SYRIN IV ONE (11:00)
[2017-07-15] MEDS ORDERED: ONDANSETRON IV *ER 4 MG/2 ML VIAL IV ONE (11:00)
[2017-07-15] MEDS ORDERED: HYDROMORPHONE 1 MG/1 ML DISP.SYRIN ONE (11:16)
[2017-07-15] MEDS ORDERED: ONDANSETRON 4 MG/2 ML VIAL ONE (11:17)
[2017-07-15 11:18] LABS: BASOPHILS % (AUTO) 0.6 % (0.0-2.0); EOSINOPHILS # (AUTO) 0.1 K/uL (0.0-0.7); HEMATOCRIT 36.1 % (31.2-41.9); HEMOGLOBIN 12.1 g/dL (10.9-14.3); LYMPHOCYTES # (AUTO) 2.1 K/uL (20.0-40.0); LYMPHOCYTES % (AUTO) 48.7 % (20.5-51.5); MEAN CORPUSCULAR HEMOGLOBIN 29.8 uug (24.7-32.8); MEAN CORPUSCULAR HGB CONC 34 g/dL (32.3-35.6); MEAN CORPUSCULAR VOLUME 88.6 fL (75.5-95.3); MONOCYTES # (AUTO) 0.4 K/uL (2.0-10.0); MONOCYTES % (AUTO) 9.4 % (0.0-11.0); NEUTROPHILS # (AUTO) 1.7 K/uL (1.8-8.9); NEUTROPHILS % (AUTO) 39.3 % (38.5-71.5); PLATELET COUNT (AUTO) 149 K/uL (179-408); RED BLOOD CELL COUNT(AUTO) 4.07 MIL/uL (3.63-4.92); WHITE BLOOD COUNT (AUTO) 4.3 K/uL (3.8-11.8)
[2017-07-15 11:27] LABS: CREATININE 0.9 mg/dL (0.6-1.3); POTASSIUM 3.6 mmol/L (3.5-5.1)
--- NOTE | 2017-07-15 11:35 | NUR ---
Patient is resting comfortably on gurney while using her personal electronic device, NAD
[2017-07-15] MEDS ORDERED: ACETAMINOPHEN 325 MG TABLET PO PRN ×2 (12:30→15:15)
[2017-07-15] MEDS ORDERED: MAGNESIUM HYDROXIDE 30 ML LIQUID UDC PO PRN (12:30)
[2017-07-15] MEDS ORDERED: ZOLPIDEM 5 MG TABLET PO PRN ×2 (12:30→15:15)
[2017-07-15] MEDS ORDERED: Z GUARD REMEDY PASTE 57 GM TUBE TOP PRN (12:30)
--- NOTE | 2017-07-15 12:40 | NUR ---
patient arrived to unit via wheelchair, complaints of right eye pain, no signs of distress, 123/76, 99% on room air, 18 respirations, 51 pulse, 97.2 oral temperature, patient oriented to unit, picture taken of swollen right eye and placed in chart, initial assessment completed, safety and comfort measures inplace, meal tray provided at this time
[2017-07-15] MEDS ORDERED: LORAZEPAM 2 MG/1 ML VIAL IV PRN (15:15)
[2017-07-15] MEDS ORDERED: HYDROMORPHONE 1 MG/1 ML DISP.SYRIN IV PRN (15:15)
[2017-07-15] MEDS ORDERED: HYDROMORPHONE 2 MG/1 ML DISP.SYRIN IV PRN (15:32)
[2017-07-15] MEDS: DIVALPROEX 500 MG TABLET.DR PO SCH ×2 (15:37→23:22)
--- NOTE | 2017-07-15 15:39 | NUR ---
Clinical Pharmacy Note: Vancomycin Pharmacy to Dose Subjective: To start vancomycin in this 36 y/o female for indication of cellulitis (eye swelling) Objective: weight 90kg height 154 cm BUN 14 Scr 0.9 Wbc 4.3 temp 97.8 1gm given in ER at 1100 today Assessment/Plan Will start 1250mg vanco q15hr for estimated trough of 16.25, first dose tonight at 2100. Will ordertrough before 4th scheduled dose (not ordered yet). Will dose per level if renal fxn were to become unstable. Will follow
[2017-07-15] MEDS: ONDANSETRON 4 MG/2 ML VIAL IV PRN (15:45)
[2017-07-15] MEDS: HYDROMORPHONE 4 MG/1 ML DISP.SYRIN IV PRN ×3 (15:45→23:58)
[2017-07-15] MEDS: POTASSIUM CHLORIDE 20 MEQ in IV NS 1000 ML 1,000 ML IV PRN (17:30)
--- NOTE | 2017-07-15 19:30 | NUR ---
PT ALERT AND ORIENTED IN BED. NO DISTRESS NOTED. RIGHT EYE SWOLLEN AND VERY PAINFUL PER PT. IV INTACT AND PATENT. WILL GIVE PAIN MEDICATION WHEN DUE ORDERED. COMPLIANT WITH NURSING CARE. SAFETY MAINTAINED. CALL LIGHT WITHIN REACH.
[2017-07-15 19:41] LABS: *BILIRUBIN,URIN NEGATIVE (NEGATIVE); *BLOOD, URINE 2+ (NEGATIVE); *COLOR,URINE YELLOW (YELLOW); *KETONES,URINE TRACE (NEGATIVE); *PROTEIN,URINE NEGATIVE (NEGATIVE); LEUKOCYTE ESTERASE ,URINE NEGATIVE (NEGATIVE); NITRITE, URINE NEGATIVE (NEGATIVE); PH,URINE 6.5 (5.0-8.0); UGLUCOSE NEGATIVE (NEGATIVE)
[2017-07-15 19:45] LABS: *URINE HCG, QUAL NEGATIVE (NEGATIVE)
[2017-07-15 19:54] LABS: *CLARITY,URINE SLIGHTLY HAZY (CLEAR)
[2017-07-15 19:56] LABS: MUCUS,URINE MODERATE /LPF (0-FEW); RBC,URINE 20-50 /HPF (0-3); SQUAMOUS EPITHELIAL CELL,UR MODERATE /HPF (NONE SEEN); WBC,URINE 0-3 /HPF (0-3)
[2017-07-15 20:06] VITALS: BP 111/58
[2017-07-15] MEDS: LEVETIRACETAM 500 MG TABLET PO SCH (20:07)
[2017-07-15] MEDS: VANCOMYCIN IV 1,250 MG in IV DEXTROSE 5% 500 ML IV SCH (20:07)
[2017-07-15] MEDS: ATORVASTATIN 20 MG TABLET PO SCH (20:08)
[2017-07-15] MEDS: PIPERACILLIN/TAZOBACTAM/D5W 3.375 G in PREMIXED 1 EACH IV SCH (22:48)
[2017-07-16] MEDS ORDERED: HYDROMORPHONE 1 MG/1 ML DISP.SYRIN IV ONE (02:30)
[2017-07-16] MEDS: ONDANSETRON 4 MG/2 ML VIAL IV PRN ×5 (02:39→21:51)
[2017-07-16] MEDS ORDERED: HYDROMORPHONE 2 MG/1 ML DISP.SYRIN ONE (02:42)
--- NOTE | 2017-07-16 02:43 | NUR ---
SPOKE WITH DR CONNOLLY, PT IN 04/11 PAIN DUE TO RIGHT EYE, DR ORDERED DILAUDID 1MG ONE TIME NOW AND HEAD CT. PT HAD CT OF THE HEAD PREVIOUSLY IN MAY, SPOKE WITH PT AND PT REFUSING TO HAVE ANOTHER CT DONE. CALLED TO LET HER KNOW PT REFUSING. DILAUDID GIVEN ORDERED ONE TIME DOSE AND ZOFRAN GIVEN FOR NAUSEA. SAFETY MAINTAINED. CALL LIGHT WITHIN REACH. WILL CONTINUE TO MONITOR.
[2017-07-16] MEDS: PIPERACILLIN/TAZOBACTAM/D5W 3.375 G in PREMIXED 1 EACH IV SCH ×3 (06:15→21:07)
[2017-07-16] MEDS: PANTOPRAZOLE SODIUM 40 MG TABLET.DR PO SCH (06:15)
[2017-07-16] MEDS: DIVALPROEX 500 MG TABLET.DR PO SCH ×3 (06:15→22:42)
[2017-07-16] MEDS: HYDROMORPHONE 4 MG/1 ML DISP.SYRIN IV PRN ×2 (06:16→09:09)
[2017-07-16 06:49] LABS: BASOPHILS % (AUTO) 0.1 % (0.0-2.0); EOSINOPHILS # (AUTO) 0.3 K/uL (0.0-0.7); HEMOGLOBIN 12.5 g/dL (10.9-14.3); LYMPHOCYTES # (AUTO) 0.9 K/uL (20.0-40.0); MONOCYTES # (AUTO) 0.6 K/uL (2.0-10.0); NEUTROPHILS # (AUTO) 4.4 K/uL (1.8-8.9)
--- NOTE | 2017-07-16 06:57 | NUR ---
PT RESTING IN BED. NO DISTRESS NOTED. PAIN MEDICATION GIVEN THROUGHOUT THE NIGHT FOR PAIN IN THE RIGHT EYE. IV INTACT AND PATENT INFUSING FLUIDS ORDERED. SAFETY MAINTAINED. CALL LIGHT WITHIN REACH.
[2017-07-16 07:02] LABS: BILIRUBIN,TOTAL 0.2 mg/dL (0.2-1.0); CREATININE 0.9 mg/dL (0.6-1.3); MAGNESIUM 1.7 mg/dL (1.8-2.4); POTASSIUM 4.4 mmol/L (3.5-5.1); TOTAL PROTEIN, SERUM 6.5 g/dL (6.4-8.2)
[2017-07-16 07:09] LABS: EOSINOPHILS % (AUTO) 4.5 % (0.0-7.0); HEMATOCRIT 37.3 % (31.2-41.9); LYMPHOCYTES % (AUTO) 14.3 % (20.5-51.5); MEAN CORPUSCULAR HEMOGLOBIN 29.7 uug (24.7-32.8); MEAN CORPUSCULAR HGB CONC 33 g/dL (32.3-35.6); MEAN CORPUSCULAR VOLUME 88.8 fL (75.5-95.3); MONOCYTES % (AUTO) 9.5 % (0.0-11.0); NEUTROPHILS % (AUTO) 71.6 % (38.5-71.5); PLATELET COUNT (AUTO) 156 K/uL (179-408)
[2017-07-16 07:13] LABS: WHITE BLOOD COUNT (AUTO) 6.2 K/uL (3.8-11.8)
[2017-07-16 08:11] VITALS: BP 95/59
[2017-07-16] MEDS: LEVETIRACETAM 500 MG TABLET PO SCH ×2 (09:11→20:57)
[2017-07-16] MEDS: NICOTINE 7 MG/24HR PATCH TD SCH (09:11)
[2017-07-16] MEDS ORDERED: MAGNESIUM OXIDE 400 MG TABLET PO ONE (12:15)
[2017-07-16] MEDS: VANCOMYCIN IV 1,250 MG in IV DEXTROSE 5% 500 ML IV SCH (12:29)
--- NOTE | 2017-07-16 13:13 | NUR ---
Clinical Pharmacy Note: Vancomycin Pharmacy to Dose Subjective: To continue vancomycin in this 36 y/o female for indication of cellulitis (eye swelling) Objective: weight 90kg height 154 cm BUN 11 Scr 0.9 Wbc 6.2 temp 97.4 Assessment/Plan Since renal function is stable, will continue 1250mg vanco q15hr for estimated trough of 16.25, third dose due tomorrow at 0300. Will order trough before 4th scheduled dose (not ordered yet). Will dose per level if renal fxn were to become unstable. Will follow.
[2017-07-16] MEDS ORDERED: diphenhydrAMINE 50 MG/1 ML VIAL IV PRN (13:45)
[2017-07-16] MEDS: HYDROMORPHONE 2 MG/1 ML DISP.SYRIN IV PRN ×3 (13:52→21:53)
--- NOTE | 2017-07-16 18:29 | NUR ---
SHE IS BEING TRANSFERRED TO MED SURG ROOM 203. PT NOTIFIED.
[2017-07-16 20:00] VITALS: BP 131/81
[2017-07-16] MEDS: diphenhydrAMINE 50 MG/1 ML VIAL IV PRN (20:56)
[2017-07-16] MEDS: ATORVASTATIN 20 MG TABLET PO SCH (20:56)
[2017-07-16] MEDS ORDERED: diphenhydrAMINE 50 MG/1 ML VIAL ONE (21:09)
[2017-07-17] MEDS: VANCOMYCIN IV 1,250 MG in IV DEXTROSE 5% 500 ML IV SCH ×2 (02:32→17:11)
[2017-07-17] MEDS: diphenhydrAMINE 50 MG/1 ML VIAL IV PRN ×6 (02:42→23:05)
[2017-07-17] MEDS: ONDANSETRON 4 MG/2 ML VIAL IV PRN ×6 (02:43→22:59)
[2017-07-17] MEDS: HYDROMORPHONE 2 MG/1 ML DISP.SYRIN IV PRN ×6 (02:43→22:58)
[2017-07-17] MEDS ORDERED: diphenhydrAMINE 50 MG/1 ML VIAL ONE ×2 (02:59→07:10)
[2017-07-17] MEDS: POTASSIUM CHLORIDE 20 MEQ in IV NS 1000 ML 1,000 ML IV PRN (03:36)
[2017-07-17] MEDS: PIPERACILLIN/TAZOBACTAM/D5W 3.375 G in PREMIXED 1 EACH IV SCH ×3 (05:09→22:16)
[2017-07-17 05:31] VITALS: BP 112/67
[2017-07-17] MEDS: DIVALPROEX 500 MG TABLET.DR PO SCH ×3 (06:22→22:21)
[2017-07-17] MEDS: PANTOPRAZOLE SODIUM 40 MG TABLET.DR PO SCH (06:22)
--- NOTE | 2017-07-17 06:28 | NUR ---
PAIN MANAGEMENT PROVIDED THROUGHOUT SHIFT, PT IS ALERT AND ORIENTED, C/O ITCHING AND NAUSEA, GIVEN ZOFRAN AND BENADRYL ORDERED. IVF STILL INFUSING. ON BRP. PT SMOKES TO THE PATIO WITH THE LUMBER CHAIN OFFBEARER, DR. MUHAMMAD AWARE. SAFETY MAINTAINED.
--- NOTE | 2017-07-17 07:30 | NUR ---
RECEIVED PATIENT IN BED AWAKE ALERT AND ORIENTED PATIENT WAS JUST MEDICATED FOR PAIN NAUSEA AND ITCHING ANS SHE STATED THAT SHE IS COMFORTABLE AT THIS TIME.RIGHT EYE ORBITAL CELLULITIS STILL EVIDENT RESTING COMFORTABLY AND WILL CONTINUE TO OBSERVE.
[2017-07-17] MEDS: NICOTINE 7 MG/24HR PATCH TD SCH (08:31)
[2017-07-17] MEDS: LEVETIRACETAM 500 MG TABLET PO SCH ×2 (08:31→20:42)
--- NOTE | 2017-07-17 10:30 | NUR ---
IV SITE INFILTERATED AND PATIENT STATED THAT SHE IS A VERY HARD STICK CALLED ED TO GET SOMEONE TO ATTEMPT TO INSERT UNABLE TO FIND SOMEONE AT THIS TIME.
--- NOTE | 2017-07-17 11:04 | NUR ---
PATIENT STATED THAT SHE WAS HAVING A LOT OF PAIN INFORMED DR LA THAT PATIENT HAS NO IV SITE AT THIS TIME AND HE STATED TO GIVE HER WHAT EVER WAS DUE INTRAMUSCULAR AND DONE.
[2017-07-17 11:32] VITALS: BP 93/48
--- NOTE | 2017-07-17 13:00 | NUR ---
PERIPHERAL IV INSERTED TO HER RIGHT FOREARM AND HER IVF RESUMED AT THIS TIME.
--- NOTE | 2017-07-17 14:01 | NUR ---
Clinical Pharmacy Note: Vancomycin Pharmacy to Dose Subjective: To continue vancomycin in this 36 y/o female for indication of cellulitis (eye swelling) Objective: weight 90kg height 154 cm BUN 11 (07/16) Scr 0.9 (07/16) Wbc 6.2 (07/16) temp 98.3 Assessment/Plan Since renal function is stable, will continue 1250mg vanco q15hr for estimated trough of 16.25. Level drawn early, pt is hard stick and awaiting new line, will continue current regimen and reorder trough with tomorrow am dose if doses today given on time. Trough ordered currently for tomorrow 07/18 @ 0830. Will check level then and adjust as needed. Will follow
[2017-07-17 15:34] VITALS: BP 117/70
--- NOTE | 2017-07-17 18:30 | NUR ---
REMAIN ON IV ANTIBIOTICS ORDERED AND PAIN MEDICATIONS PER HER REQUEST WITH NO ADVERSE OR ALLERGIC REACTIONS AT THIS TIME MADE COMFORTABLE.
[2017-07-17 20:05] VITALS: BP 133/78
[2017-07-17] MEDS: ATORVASTATIN 20 MG TABLET PO SCH (20:42)
--- NOTE | 2017-07-17 21:38 | NUR ---
AAOX4 YUVAL'S AMBULATES TO THE BR. VOIDING WELL. NO BM NOTED THIS SHIFT. ADMITTED FOR PERIORBITAL CELLULITIS. ON ANTIBIOTICS. TOLERATED WELL. NO ILL EFFECTS NOTED. SEEN BY DR MUHAMMAD. PATIENT SUPPOSED TO HAVE MIDLINE CATHETER BUT REFUSED. PATIENT ALREADY HAD A #22 GAUGE HEPLOCK ON THE RIGHT FOREARM. IVF'S INFUSING WELL. PATIENT FOR POSSIBLE DISCHARGE IN AM. WILL HAVE CHANGE IV ANTIBIOTICS TO PO PER DR MUHAMMAD. RIGHT EYE LOOKS BETTER. ON PAIN MANAGEMENT. NEEDS ATTENDED. KEPT COMFORTABLE.
--- NOTE | 2017-07-18 04:57 | NUR ---
QUIET NIGHT. SLEPT WELL. NO ACUTE DISTRESS NOTED. VSS. FOR POSSIBLE DISCHARGE TODAY. WILL MONITOR PATIENT.
[2017-07-18] MEDS: PIPERACILLIN/TAZOBACTAM/D5W 3.375 G in PREMIXED 1 EACH IV SCH ×3 (06:02→21:16)
[2017-07-18 06:06] VITALS: BP 125/78
[2017-07-18] MEDS: DIVALPROEX 500 MG TABLET.DR PO SCH ×3 (06:49→23:36)
[2017-07-18] MEDS: PANTOPRAZOLE SODIUM 40 MG TABLET.DR PO SCH (06:49)
[2017-07-18] MEDS: diphenhydrAMINE 50 MG/1 ML VIAL IV PRN ×4 (06:50→19:26)
[2017-07-18] MEDS: ONDANSETRON 4 MG/2 ML VIAL IV PRN ×4 (06:51→19:26)
[2017-07-18] MEDS: HYDROMORPHONE 2 MG/1 ML DISP.SYRIN IV PRN ×5 (06:51→23:49)
[2017-07-18 07:31] LABS: BASOPHILS % (AUTO) 0.3 % (0.0-2.0); EOSINOPHILS # (AUTO) 0.4 K/uL (0.0-0.7); EOSINOPHILS % (AUTO) 7.2 % (0.0-7.0); HEMATOCRIT 38.5 % (31.2-41.9); HEMOGLOBIN 12.9 g/dL (10.9-14.3); LYMPHOCYTES # (AUTO) 1.8 K/uL (20.0-40.0); LYMPHOCYTES % (AUTO) 31.1 % (20.5-51.5); MEAN CORPUSCULAR HEMOGLOBIN 29.8 uug (24.7-32.8); MEAN CORPUSCULAR HGB CONC 33 g/dL (32.3-35.6); MEAN CORPUSCULAR VOLUME 89.1 fL (75.5-95.3); MONOCYTES # (AUTO) 0.5 K/uL (2.0-10.0); MONOCYTES % (AUTO) 8.4 % (0.0-11.0); NEUTROPHILS # (AUTO) 3.1 K/uL (1.8-8.9); PLATELET COUNT (AUTO) 171 K/uL (179-408); RED BLOOD CELL COUNT(AUTO) 4.33 MIL/uL (3.63-4.92); WHITE BLOOD COUNT (AUTO) 5.9 K/uL (3.8-11.8)
--- NOTE | 2017-07-18 07:41 | NUR ---
RECEIVED PATIENT IN S/P PAIN/NAUSEA MEDICATIONS AND STATED THAT IT WAS EFFECTIVE RESTING COMFORTABLY.REMAIN ON IVF ORDERED WITH NO S/S OF INFILTERATION.IV ANTIBIOTICS REMAIN IN PROGRESS ORDERED WITH NO ADVERSE OR ALLERGIC REACTIONS AT THIS TIME.MADE COMFORTABLE AND WILL OBSERVE.
[2017-07-18 07:42] LABS: MAGNESIUM 2.3 mg/dL (1.8-2.4); PHOSPHOROUS 3.4 mg/dL (2.5-4.9); POTASSIUM 3.6 mmol/L (3.5-5.1)
[2017-07-18] MEDS: LEVETIRACETAM 500 MG TABLET PO SCH ×2 (08:30→21:16)
[2017-07-18] MEDS: NICOTINE 7 MG/24HR PATCH TD SCH (08:34)
[2017-07-18] MEDS: POTASSIUM CHLORIDE 20 MEQ in IV NS 1000 ML 1,000 ML IV PRN (09:14)
[2017-07-18] MEDS: VANCOMYCIN IV 1,500 MG in IV DEXTROSE 5% 500 ML IV SCH ×2 (10:17→23:36)
--- NOTE | 2017-07-18 10:46 | NUR ---
NICOTINE PATCH HELD PATIENT STATED WOULD RATHER SMOKE.
--- NOTE | 2017-07-18 11:16 | NUR ---
Clinical Pharmacy Note: Vancomycin Pharmacy to Dose Subjective: To continue vancomycin in this 36 y/o female for indication of cellulitis (eye swelling) Objective: weight 90kg height 154 cm BUN 8 Scr 1.0 Wbc 5.9 temp 98.4 vanco trough level: 10.5 Assessment/Plan since vanco trough level is low, will change dose to 1500mg IVPB q14 h for estimated trough of 15.5 mcg/ml at steady state. 1st dose is due today at 1000. Plan to check trough before 4th dose (level not yet ordered). Will monitor renal function & adjust the dose if needed. Will follow
[2017-07-18 11:35] VITALS: BP 145/82
[2017-07-18 15:32] VITALS: BP 146/83
--- NOTE | 2017-07-18 17:45 | NUR ---
CONTINUE TO REQUEST FOR PAIN MEDICATIONS FOR HER RIGHT EYE CELLULITIS ORDERED AND HELPFUL.IVF REMAINS IN PROGRESS WITH IV ANTIBIOTICS WITH NO ADVERSE OR ALLERGIC REACTIONS AT THIS TIME.MADE COMFORTABLE AND WILL CONTINUE TO OBSERVE.
--- NOTE | 2017-07-18 20:00 | NUR ---
RECEIVED PT AWAKE IN BED, PAIN MEDS GIVEN BY PREVIOUS NURSE, NO S/S OF DISTRESS NOTED AT PRESENT. CALL LIGHT WITHIN PT'S REACH, WILL CONTINUE TO MONITOR PT
[2017-07-18 20:38] VITALS: BP 167/94
[2017-07-18] MEDS: ATORVASTATIN 20 MG TABLET PO SCH (21:14)
[2017-07-18] MEDS: LACTOBACILLUS RHAMNOSUS GG 1 EACH CAPSULE PO SCH (21:14)
--- NOTE | 2017-07-19 | NUR ---
PT DOZES ON AND OFF, CONTINUES TO REQUEST FOR PRN PAIN MEDS WHICH WERE GIVEN 15 MINUTES AGO. PT STATES MEDS WITH EFFECT, IV ANTIBIOTICS WERE GIVEN WITH NO ADVERSE EFFECTS NOTED. NO FURTHER CONCERNS AT PRESENT WILL CONTINUE TO MONITOR PT
[2017-07-19] MEDS: ONDANSETRON 4 MG/2 ML VIAL IV PRN (01:24)
[2017-07-19] MEDS: diphenhydrAMINE 50 MG/1 ML VIAL IV PRN ×2 (01:24→08:29)
[2017-07-19] MEDS: HYDROMORPHONE 2 MG/1 ML DISP.SYRIN IV PRN ×2 (04:01→08:29)
[2017-07-19 05:13] VITALS: BP 131/74
[2017-07-19] MEDS: PIPERACILLIN/TAZOBACTAM/D5W 3.375 G in PREMIXED 1 EACH IV SCH (06:13)
[2017-07-19] MEDS: PANTOPRAZOLE SODIUM 40 MG TABLET.DR PO SCH (06:13)
[2017-07-19] MEDS: DIVALPROEX 500 MG TABLET.DR PO SCH (06:17)
--- NOTE | 2017-07-19 07:21 | NUR ---
PT IS ASLEEP WITH NO S/S OR SYMPTOMS OF PAIN OR DISCOMFORT, NO SIGNIFICANT CHANGES IN STATUS AT THIS TIME. ALL NEEDS WERE MET AND ANTICIPATED
--- NOTE | 2017-07-19 07:40 | NUR ---
RECEIVED PATIENT IN BED AWAKE ALERT AND ORIENTED AND ITCHING ANS SHE STATED THAT SHE IS COMFORTABLE AT THIS TIME. WILL CONTINUE TO OBSERVE.CALL LIGHT WITH IN REACH
[2017-07-19] MEDS: NICOTINE 7 MG/24HR PATCH TD SCH (08:04)
[2017-07-19] MEDS: LACTOBACILLUS RHAMNOSUS GG 1 EACH CAPSULE PO SCH (08:04)
[2017-07-19] MEDS: LEVETIRACETAM 500 MG TABLET PO SCH (08:04)
--- NOTE | 2017-07-19 11:01 | NUR ---
Clinical Pharmacy Note: Vancomycin Pharmacy to Dose Subjective: To continue vancomycin in this 36 y/o female for indication of cellulitis (eye swelling) Objective: weight 90kg height 154 cm BUN 8 (07/18) Scr 1.0 (07/18) Wbc 5.9 (07/18) temp 97.9 Assessment/Plan Will continue new regimen of 1500mg IVPB q14 h for estimated trough of 15.5 mcg/ml at steady state. 3rd dose today at 1400. Plan to check trough before 4th dose (due tomorrow am at 0330). RN endorsed to hold dose if Tr >20. Will check trough in am and adjust as needed. Will monitor renal function & adjust the dose if needed as well. Will follow
[2017-07-19 11:22] VITALS: BP 140/80
[2017-07-19] MEDS ORDERED: SULF1TAB48 PO (12:29)
[2017-07-19] MEDS ORDERED: MORP15TA PO (12:29)
[2017-07-19] MEDS ORDERED: FLUC150T PO (12:34)
--- NOTE | 2017-07-19 12:53 | NUR ---
D/C ORDERS RECEIVED NOTED AND CARRIED OUT.D/C HEPLOCK PER MD ORDERS.D/C INSTRUCTIONS GIVEN TO THE PT AND PT VERBALIZED UNDERSTANDING ALL THE INSTRUCTION.PT LEFT THE FACILITY VIA PRIVATE CAR IN STABLE CONDITION.
== END 2017-07-19 12:55 | disposition home or self-care (01) | DRG 603 ==
LOC: ER 10:22 → MEDSURG1 11:30 → MED 07-16 19:00
PROVIDERS: ADMIT Internal Medicine; ATTEND Internal Medicine
DX: L03.213 Periorbital cellulitis (principal); D69.6 Thrombocytopenia, unspecified; E44.0 Moderate protein-calorie malnutrition; G40.409 Other generalized epilepsy and epileptic syndromes, not intractable, without status epilepticus; E83.42 Hypomagnesemia; Z79.899 Other long term (current) drug therapy; Z83.3 Family history of diabetes mellitus; F17.210 Nicotine dependence, cigarettes, uncomplicated; E66.9 Obesity, unspecified; Z68.37 Body mass index [BMI] 37.0-37.9, adult; J34.1 Cyst and mucocele of nose and nasal sinus; E78.5 Hyperlipidemia, unspecified; B37.3 Candidiasis of vulva and vagina
CPT/HCPCS: 36415; 83605; 83735; 84100; 84703; 85025; 87040; 87086; A4663; A9150; J1170; J1200; J2060; J2405; J2543; J3370; J3480; J7030; J7060

== ENCOUNTER 2017-07-21 13:09 | Emergency (ER) | payer BC, OTHER ==
[~2017-07-21] VITALS: Ht 154.9 cm; Wt 81.6 kg
[~2017-07-21 13:09] MED LIST changes: +FLUC150T PO; +MORP15TA PO; -RXVAN XX; +SULF1TAB48 PO
[2017-07-21 13:35] VITALS: BP 162/99
== END 2017-07-21 13:31 | disposition home or self-care (01) ==
LOC: ER 13:09
DX: L03.213 Periorbital cellulitis (principal); F17.200 Nicotine dependence, unspecified, uncomplicated; Z88.5 Allergy status to narcotic agent
CPT/HCPCS: A4663

== ENCOUNTER 2017-08-27 23:52 | Emergency (ER) | payer BC, OTHER ==
[~2017-08-27] VITALS: Ht 154.9 cm; Wt 90.7 kg
[~2017-08-27 23:52] MED LIST changes: -ATOR20TA PO; -FLUC150T PO; -LACT1CAP57 PO
--- NOTE | 2017-08-28 00:05 | NUR ---
CALLED [facility]ITA SPOKE WITH [employer] PROGRAM MANAGER [phone] GIVEN CONCERNING PT.NIKITA WILL BE OUT TO GET REPORT
--- NOTE | 2017-08-28 00:25 | NUR ---
REJI CATALAN AT BEDSIDE FOR MSE.
[2017-08-28] MEDS ORDERED: IBUPROFEN 600 MG TABLET PO ONE (00:30)
[2017-08-28] MEDS ORDERED: IBUPROFEN 600 MG TABLET ONE (00:31)
[2017-08-28] MEDS ORDERED: IBUPROFEN 800 MG TABLET ONE (00:35)
[2017-08-28] MEDS ORDERED: IBUPROFEN 800 MG TABLET PO ONE (00:45)
--- NOTE | 2017-08-28 00:55 | NUR ---
PT TAKEN OUT OF ROOM FOR CT BY BOTTOM POUNDER CEMENT SHOES VIA WHEELCHAIR. NO DISTRESS NOTED.
--- NOTE | 2017-08-28 01:05 | NUR ---
PT BACK IN ROOM FROM CT. NO ACUTE EVENTS NOTED.
--- NOTE | 2017-08-28 01:55 | NUR ---
Patient discharged to home in stable conditon. Written and verbal after care instructions given. Patient verbalizes understanding of instructions. Pt ambulated from ER w/ steady gait. No distress noted.
[2017-08-28 01:56] VITALS: BP 153/92
== END 2017-08-28 01:57 | disposition home or self-care (01) ==
LOC: ER 23:52
DX: S00.83XA Contusion of other part of head, initial encounter (principal); Z88.5 Allergy status to narcotic agent; Z79.891 Long term (current) use of opiate analgesic; Z79.899 Other long term (current) drug therapy; Y09 Assault by unspecified means
CPT/HCPCS: 70486; 99284; A4663

== ENCOUNTER 2021-11-04 09:17 | Emergency (ER) | payer OTHER ==
[~2021-11-04] VITALS: Ht 175.3 cm; Wt 81.6 kg
[2021-11-04] MEDS ORDERED: LEVE500T9 PO (09:25)
[2021-11-04] MEDS ORDERED: DIVA500T2 PO (09:25)
--- NOTE | 2021-11-04 09:32 | NUR ---
Dr Church at the bedside for MSE.
[2021-11-04 10:13] LABS: HEMATOCRIT 31.7 % (31.2-41.9); MEAN CORPUSCULAR VOLUME 114.4 fL (75.5-95.3); PLATELET COUNT (AUTO) 194 K/uL (179-408)
--- NOTE | 2021-11-04 10:15 | NUR ---
Urine collected and sent to LAB.
--- NOTE | 2021-11-04 10:17 | NUR ---
Pt out of ER for CT scan.
[2021-11-04 10:24] LABS: ETHANOL < 3 MG/DL (0-0)
[2021-11-04 10:25] LABS: ALANINE AMINOTRANSFERASE 30 U/L (14-59); ALKALINE PHOSPHATASE 165 U/L (50-136); ASPARTATE AMINOTRANSFERASE 36 U/L (15-37); BILIRUBIN,DIRECT 0.3 mg/dL (0.0-0.2); BILIRUBIN,TOTAL 0.5 mg/dL (0.2-1.0); CARBON DIOXIDE 35 mmol/L (21-32); CHLORIDE 106 mmol/L (98-107); CREATININE 0.8 mg/dL (0.6-1.3); GLUCOSE 86 mg/dL (74-106); POTASSIUM 3.9 mmol/L (3.5-5.1); TOTAL PROTEIN, SERUM 6.5 g/dL (6.4-8.2); UREA NITROGEN, BLOOD 11 mg/dL (7-18)
[2021-11-04] MEDS ORDERED: LORAZEPAM 2 MG/1 ML VIAL ONE (10:30)
[2021-11-04 10:34] LABS: *BILIRUBIN,URIN NEGATIVE (NEGATIVE); *BLOOD, URINE NEGATIVE (NEGATIVE); *CLARITY,URINE CLEAR (CLEAR); *COLOR,URINE YELLOW (YELLOW); *KETONES,URINE NEGATIVE (NEGATIVE); LEUKOCYTE ESTERASE ,URINE NEGATIVE (NEGATIVE); NITRITE, URINE NEGATIVE (NEGATIVE); PH,URINE 8.5 (5.0-8.0); UGLUCOSE NEGATIVE (NEGATIVE)
--- NOTE | 2021-11-04 10:35 | NUR ---
Pt back from Ct. Resting in bed.
[2021-11-04] MEDS ORDERED: MORPHINE SULFATE 4 MG/1 ML DISP.SYRIN ONE (10:39)
[2021-11-04] MEDS ORDERED: MORPHINE SULFATE 4 MG/1 ML DISP.SYRIN IM ONE (10:45)
[2021-11-04 10:47] LABS: *AMPHETAMINE, URINE NEGATIVE (NEGATIVE); *CANNABINOID, URINE POSITIVE (NEGATIVE); *COCCAINE, URINE NEGATIVE (NEGATIVE); *OPIATE, URINE NEGATIVE (NEGATIVE); *PHENCYCLIDINE SCREEN,URINE NEGATIVE (NEGATIVE)
--- NOTE | 2021-11-04 10:52 | NUR ---
Pt assissted to bathroom, pt uses walker for safety.
--- NOTE | 2021-11-04 11:40 | NUR ---
Placed a call to [facility], and spoke to
--- NOTE | 2021-11-04 12:10 | NUR ---
Dr Church spoke to Dr Noel from [place]. Patient is resting comfortably in bed with eyes closed, NAD noted.
[2021-11-04 12:51] LABS: VALPROIC ACID 18 ug/mL (50-100)
--- NOTE | 2021-11-04 14:42 | NUR ---
Pt siiting up in bed, eating lunch. NAD noted.
[2021-11-04] MEDS ORDERED: ONDANSETRON ODT 4 MG TAB.RAPDIS ONE (14:56)
[2021-11-04] MEDS ORDERED: ONDANSETRON ODT 4 MG TAB.RAPDIS SL ONE (15:00)
--- NOTE | 2021-11-04 15:10 | NUR ---
Called [facility], per MD request.
--- NOTE | 2021-11-04 15:53 | NUR ---
Patient is resting comfortably in bed with eyes closed, NAD noted.
[2021-11-04] MEDS ORDERED: DIVALPROEX 500 MG TABLET.DR PO ONE ×2 (16:00→16:07)
[2021-11-04 16:50] VITALS: BP 130/89
--- NOTE | 2021-11-04 16:51 | NUR ---
Patient discharged to home in stable condition. Written and verbal after care instructions given. Patient verbalizes understanding of instructions. Stressed follow up or return to ER for worsening s/s.
== END 2021-11-04 16:51 | disposition home or self-care (01) ==
LOC: ER 09:17
DX: G40.909 Epilepsy, unspecified, not intractable, without status epilepticus (principal); R00.0 Tachycardia, unspecified; D64.9 Anemia, unspecified; E88.09 Other disorders of plasma-protein metabolism, not elsewhere classified; F17.200 Nicotine dependence, unspecified, uncomplicated; G62.9 Polyneuropathy, unspecified; R03.0 Elevated blood-pressure reading, without diagnosis of hypertension; Z79.899 Other long term (current) drug therapy
CPT/HCPCS: 36415; 70450; 80048; 80076; 80164; 80307; 80320; 81003; 84702; 85025; 93005; 96372; 99285; J2270; A4663; G0480; J2060; Q0162